=== PATIENT | male | born 1960 | race Caucasian/White ===

== ENCOUNTER 2017-10-30 09:33 | Emergency (ER) | payer BC ==
[~2017-10-30] VITALS: Ht 180.3 cm; Wt 105.4 kg
[~2017-10-30 09:33] MED LIST: FLORASTOR250 MG PO; LAMICTAL200 MG PO; LAMOTRIGINE200 MG PO; LISINOPRIL10 MG PO; PRILOSEC OTC20 MG PO; VANCOMYCIN HCL125 MG PO
[2017-10-30] MEDS ORDERED: CIPRO500 MG PO (13:07)
[2017-10-30] MEDS ORDERED: LOPERAMIDE2 MG PO (13:07)
[2017-10-30 14:40] VITALS: BP 161/97
== END 2017-10-30 14:41 | disposition home or self-care (01) ==
LOC: EME 09:33
DX: R19.7 Diarrhea, unspecified (principal); E86.0 Dehydration; R11.2 Nausea with vomiting, unspecified; R42 Dizziness and giddiness
CPT/HCPCS: 99281; 99285; J2405; J7040; J7120